=== PATIENT | female | born 1945 | race Caucasian/White ===

== ENCOUNTER → 2017-03-09 | Outpatient (CLI) | payer MEDICARE, OTHER | END | disposition home or self-care (01) | LOC: MAMMO 12:47 | PROVIDERS: ATTEND Nurse Practitioner | DX: Z12.31 Encounter for screening mammogram for malignant neoplasm of breast (principal) | CPT/HCPCS: G0202; 77067 ==

== ENCOUNTER → 2021-08-26 | Outpatient (CLI) | payer OTHER ==
--- NOTE | 2021-08-26 16:20 | RAD ---
EXAMINATION: MG DIGITAL BILAT DIAGNOSTIC MAMMO WITH ERI, US BREAST LTD RT History: Right breast pain Comparison: 03/09/2017 and 12/05/2014. Technique: Bilateral digital diagnostic mammogram views were obtained. CAD was utilized. 3-D tomosyn thesis images were acquired. Focused right breast ultrasound was performed in area of concern. Findings: Breast Tissue Density B : There are scattered areas of fibroglandular density. There is a focal asymmetry in the right retroareolar region. This persists on spot compression. No sanchez spicious mass in the left breast. There are no suspicious calcifications or architectural distortion in either breast. Ultrasound of the right breast in the retroareolar region demonstrates a few mildly dilated ducts wit h no internal debris or mass. There is dense fibroglandular tissue in the upper outer right breast wi th some interspersed fat or fibrocystic changes but no definite mass. IMPRESSION: 1. No evidence of malignancy. 2. 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 3. Recommend annual screening mammogram in 12 months. .BI-RADS category 2: Benign findings. The images were reviewed with computer aided detection. Patient information is entered into the reminder system with a target due date for the next screening mammogram. Mammography is the most sensitive method for finding small breast cancers, but it does not detect the m all and is not a substitute for careful clinical examination. A negative mammogram does not negate a clinically suspicious finding and should not result in delay in biopsying a clinically suspicious a bnormality. "Our facility is accredited by the [employer] Mammography Program." Electronically signed by: Liz Monroe MD (08/26/2021 4:17 PM) [id number]
== END ==
LOC: MAMMO 13:12
PROVIDERS: ATTEND Physician Assistant
DX: N60.41 Mammary duct ectasia of right breast (principal); N64.4 Mastodynia
CPT/HCPCS: 76642; 77066; G0279; 77062